=== PATIENT | female | born 1990 | race Caucasian/White ===

== ENCOUNTER → 2020-08-25 16:04 | Outpatient (BNVA) | payer OTHER, SELFPAY | PROVIDERS: Visit Provider Obstetrics & Gynecology | DX: Z32.01 Encounter for pregnancy test, result positive (principal) | CPT/HCPCS: 81025 ==

== ENCOUNTER → 2020-09-15 14:25 | Outpatient (BNVA) | payer OTHER, SELFPAY | PROVIDERS: Visit Provider Nurse Practitioner Women's Health | DX: O36.80X0 Pregnancy with inconclusive fetal viability, not applicable or unspecified (principal); F90.0 Attention-deficit hyperactivity disorder, predominantly inattentive type; Z3A.00 Weeks of gestation of pregnancy not specified | CPT/HCPCS: 84315; 84439; 84443; 84702; 85025; 86850; 86900 ==

== ENCOUNTER → 2020-09-22 15:16 | Outpatient (BNVA) | payer OTHER, SELFPAY | PROVIDERS: Visit Provider Nurse Practitioner Women's Health | DX: O03.4 Incomplete spontaneous abortion without complication (principal); Z3A.00 Weeks of gestation of pregnancy not specified | CPT/HCPCS: 84702 ==

== ENCOUNTER → 2020-10-05 10:51 | Outpatient (BNVA) | payer OTHER, SELFPAY | PROVIDERS: PCP Family Medicine; Visit Provider Obstetrics & Gynecology | DX: O03.9 Complete or unspecified spontaneous abortion without complication (principal) | CPT/HCPCS: 84702 ==

== ENCOUNTER → 2020-12-08 17:10 | Outpatient (BNVA) | payer OTHER, SELFPAY | PROVIDERS: PCP Family Medicine; Visit Provider Obstetrics & Gynecology | DX: Z12.4 Encounter for screening for malignant neoplasm of cervix (principal) | CPT/HCPCS: 88175 ==

== ENCOUNTER → 2021-08-26 15:56 | Outpatient (BNVA) | payer OTHER, SELFPAY | PROVIDERS: PCP Family Medicine; Visit Provider Obstetrics & Gynecology | DX: N93.0 Postcoital and contact bleeding (principal) | CPT/HCPCS: 76830 ==

== ENCOUNTER → 2023-03-13 12:33 | Outpatient (BNVA) | payer OTHER, SELFPAY | PROVIDERS: PCP Family Medicine; Visit Provider Nurse Practitioner Family | DX: M79.642 Pain in left hand (principal) | CPT/HCPCS: 73130 ==

== ENCOUNTER → 2023-05-02 09:53 | Outpatient (BNVA) | payer OTHER, SELFPAY | PROVIDERS: PCP Family Medicine; Visit Provider Internal Medicine Cardiovascular Disease | DX: F90.9 Attention-deficit hyperactivity disorder, unspecified type (principal) | CPT/HCPCS: 93005 ==

== ENCOUNTER 2023-05-20 07:40 | Emergency (ER) | payer OTHER, SELFPAY ==
[2023-05-20 07:42] VITALS: BP 135/87; PULSE 87; RESP 18; TEMP 37; O2SAT 99; BMI 24.7
[2023-05-20 07:56] VITALS: BP 135/87; PULSE 71; RESP 16; O2SAT 96
--- NOTE | 2023-05-20 07:59 | XRR_ITS ---
PROCEDURE INFORMATION: Exam: XR Chest Exam date and time: 05/20/2023 8:17 AM Age: 33 years old Clinical indication: Pain; Chest pressure; Additional info: Cxp TECHNIQUE: Imaging protocol: Radiologic exam of the chest. Views: 1 view. Total images: 3 COMPARISON: No relevant prior studies available. FINDINGS: Lungs: Unremarkable. No consolidation. Pleural spaces: Unremarkable. No pleural effusion. No pneumothorax. Heart/Mediastinum: Unremarkable. No cardiomegaly. Bones/joints: Unremarkable. XR/XR chest 1V portable [id number] IMPRESSION: No acute findings.
--- NOTE | 2023-05-20 07:59 | ECG_ITS ---
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 Measurements Intervals [place] Rate: 85 P: 41 SC: 149 QRS: 68 QRSD: 90 T: 40 QT: 337 QTc: 402 Interpretive Statements SINUS RHYTHM POSSIBLE RIGHT VENTRICULAR CONDUCTION DELAY [RSR (QR) IN V1/V2] Compared to ECG 05/02/2023 10:01:34 No significant changes Electronically Signed On 05-20-2023 19:51:30 CDT by Kelly Palacios M.D. [id number]
[2023-05-20 08:14] LABS: Glucose Point of Care 95 mg/dL (70-110)
[2023-05-20] MEDS: aspirin 81 mg Chew Tablet 324 MG PO (08:20)
[2023-05-20] MEDS: aluminum-mag hydrox-simethicon 30 ML, sucralfate oral liq 1 GM PO (08:21)
[2023-05-20 08:32] LABS: Basophils # 0.1 10^3/uL (0.0-0.1); Basophils % 0.6 %; Eosinophils # 0.1 10^3/uL (0.0-0.8); Eosinophils % 1.2 %; Hematocrit 43.3 % (37.0-47.0); Hemoglobin 15.3 g/dL (11.5-15.3); Lymphocytes # 2.4 10^3/uL (0.8-4.8); Lymphocytes % 27.5 %; Mean Corpuscular HGB Conc 35.3 g/dL (30.0-36.0); Mean Corpuscular Hemoglobin 31.7 pg (28.0-34.0); Mean Corpuscular Volume 89.8 fl (81-99); Mean Platelet Volume 9.7 fL (7.4-10.4); Monocytes # 0.8 10^3/uL (0.2-0.9); Monocytes % 9.3 %; Neutrophils # 5.39 10^3/uL (1.8-7.7); Neutrophils % 61.1 %; Nucleated Red Blood Cells % 0 %; Platelet Count 356 10^3/cmm (130-400); Red Blood Count 4.82 10^6/uL (4.1-5.3); Red Cell Distribution Width 11.9 % (12.1-15.1); White Blood Count 8.8 10^3/uL (4.0-10.0)
[2023-05-20 08:42] LABS: Alanine Aminotransferase 23 U/L (0-33); Albumin Level 4.6 g/dL (3.5-5.2); Alkaline Phosphatase 73 U/L (35-105); Aspartate Amino Transferase 22 U/L (0-32); Blood Urea Nitrogen 11 mg/dL (6-20); Calcium 9.3 mg/dL (8.5-10.5); Carbon Dioxide 24 mmol/L (22-29); Chloride 101 mmol/L (98-107); Globulin 3.2 g/dL (1.3-4.6); Glomerular Filtration Rate 83.1 mL/min (90-130); Glucose 92 mg/dL (65-115); Osmolality Calculated 281 mOsm/kg (285-295); Sodium 136 mmol/L (136-145); Total Bilirubin 0.3 mg/dL (0.15-1.2); Total Protein 7.8 g/dL (6.6-8.7)
[2023-05-20 08:43] LABS: Troponin(5th) Baseline 6 ng/L (0-10)
[2023-05-20 08:44] LABS: HCG Qualitative Urine. Negative (Negative)
[2023-05-20 08:55] LABS: Add Urine Microscopic? YES; Bilirubin Urine Neg (Negative); Blood Urine 2+ (Negative); Glucose Urine UA Norm (Normal); Ketones Urine Negative (Negative); Leukocyte Esterase Urine Negative (Negative); Nitrate Urine Negative (Negative); Protein Urine Neg (Negative); RBC Urine 0-4 /hpf (0-2); Specific Gravity, Urine 1.015 (1.005-1.030); Squamous Epithelial Cell Urine 0-4 /hpf (0-5); Urine Appearance Clear (CLEAR); Urine Color Straw (Yellow); Urobilinogen Urine Norm (Negative); WBC Urine RARE /hpf (0-5); pH Urine 5 (5-7)
[2023-05-20 08:56] LABS: Add Urine Culture? No; Bacteria Urine 1+ /hpf
--- NOTE | 2023-05-20 09:17 | ED_ITS ---
HPI - Chest Pain General: Chief Complaint: Chest Pain Stated Complaint: chest pain, left side, racing heart Time Seen by Provider: 05/20/23 07:43 History of Present Illness: 33-year-old female presents to the emergency department with complaints of intermittent chest pain. She states she is had this intermittent chest discomfort to the left anterior aspect of her chest for the previous 3 to 4 weeks. She states she has seen her primary care provider for this chest discomfort and has recently worn a Holter monitor but does not know the results after her 2-week trial. She states that last night in the middle night she felt like she was having a left sided sharp chest pain that was a 4 out of 10 she states that she tried to move to her left side and lay down and then to her right side and lay down and then she even got out of bed went to her living room and lay down on the couch in a different position without relief. She denies shortness of breath sweatiness nausea or vomiting. She denies exertional dyspnea. She states she does feel like she has had some intermittent epigastric discomfort that she describes as heartburn. She also states that she felt like she may have been having an anxiety attack and that she also felt lightheaded at that time. Associated symptoms: Reports palpitations Review of Systems General: Reports: 10 or more systems reviewed and unremarkable except in HPI and below Card: Reports: chest pain and palpitations GI: Reports: heartburn Neuro: Reports: dizziness Psych: Reports: anxiety [facility] ED PFSH: Medical History ADHD No pertinent past medical history Denies diabetes, asthma, hypertension, seizures, DVT/PE PMD: Dr. Nanda Blancas Surgical History Hx of knee surgery (~2006) Right knee arthroscopic surgery for torn ACL and meniscus Family History Mother Diabetes Thyroid disease CAD (coronary artery disease) unknown onset Chronic kidney disease (CKD) Family/Other Heart disease Paternal uncle CAD (coronary artery disease) Sister Hypertension Thyroid disease Grandfather Heart disease paternal Diabetes Grandmother Diabetes Grandmother Diabetes Grandfather Diabetes Denies family history of Colon cancer Ovarian cancer Clotting disorder Dementia Breast cancer Suicide Anesthesia complication Bleeding disorder Lung disease Cancer Uterine cancer Stroke Social History Smoking and tobacco status: never smoked Alcohol intake: never Substance/Drug Use: never Physical Exam Const: COMMON NORMALS: no acute distress, average body habitus, patient oriented x3, no limitations, healthy appearing, alert and well nourished ORIENTATION/CONSCIOUSNESS: Yes awake, Yes oriented to person, Yes oriented to place and Yes oriented to time HENMT: COMMON NORMALS: normocephalic, atraumatic, external ears normal, Normal external nose present, Normal nasal mucous membranes and turbinates present and moist oral mucous membranes HEAD & SCALP: normal to inspection, normocephalic and atraumatic NOSE: Normal external nose present, Normal nares present and Normal nasal mucous membranes and turbinates present EXTERNAL EAR: Yes external ears normal MOUTH: moist mucous membranes abnormal Eye: COMMON NORMALS: Equal, round and reactive pupils present, EOMs intact bilaterally and conjunctivae normal GENERAL EYE: appearance normal, both eyes and all related structures VISUAL ACUITY: Yes acuity normal PERIORBITAL: periorbital findings normal EYELID: eyelids normal CONJUNCTIVA: Yes c onjunctivae normal PUPIL: Yes Equal, round and reactive pupils present and Yes Pupil accommodation reflex normal EOM: Yes EOM abnormal Neck/C-Spine: COMMON NORMALS: full ROM, no lymphadenopathy and supple GENERAL: Yes normal visual inspection and Yes trachea midline CAROTIDS: Yes normal carotid upstroke CERVICAL SPINE: Yes cervical ROM normal Lymph: LYMPHATIC: no lymphadenopathy noted Chest: COMMONS NORMALS: normal inspection of the chest and normal palpation of entire chest wall Resp: COMMON NORMALS: normal respiratory effort, No retractions, No use of accessory muscles and clear to auscultation bilaterally EFFORT & INSPECTION: Yes able to speak in complete sentences AUSCULTATION: clear to auscultation bilaterally Cardio: COMMON NORMALS: regular rate, regular rhythm, S1 normal heart sound present, S2 normal heart sound present and Peripheral pulses 2+ throughout RATE: regular rate RHYTHM: regular rhythm HEART SOUNDS: S1 normal heart sound present and S2 normal heart sound present PERIPHERAL PULSES: Peripheral pulses 2+ throughout GI: COMMON NORMALS: Normal to inspection, nondistended, normoactive bowel sounds present, Soft to palpation and non-tender PALPATION: Yes Soft to palpation : COMMON NORMALS: Yes no CVA tenderness BLADDER/KIDNEY EXAM: Yes no CVA tenderness Back/Pelvis: COMMON NORMALS: no CVA tenderness Extremity: COMMON NORMALS: normal to inspection, full ROM and capillary refill normal Neuro: COMMON NORMALS: patient oriented x3, CN's II-XII intact bilaterally, moves all extremities and no sensory deficits noted SENSORIUM/ORIENTATION: Yes alert, Yes oriented to person, Yes oriented to place and Yes oriented to time SPEECH: speech normal Psych: COMMON NORMALS: mental status grossly normal, Normal thought process present, cooperative and normal affect THOUGHT PROCESS: Normal thought process present Skin: COMMON NORMALS: no rashes or lesions noted GENERAL SKIN EXAM: no rashes or lesions noted Course Vital Signs: Vital signs: Vital Signs Temperature 98.6 F 05/20/23 07:42 Pulse Rate 71 05/20/23 07:56 Respiratory Rate 16 05/20/23 07:56 Blood Pressure 135/87 05/20/23 07:56 Pulse Oximetry 96 05/20/23 07:56 Oxygen Delivery Me thod Room Air 05/20/23 07:56 MDM - Chest Pain Medical Decision Making Physical exam completed and documented I will obtain a radiographic examination as well as provide her a GI cocktail and cardiac dose aspirin. We will obtain cardiac markers her twelve-lead EKG appears unremarkable was initially at obtained at 747 this morning. She is sinus rhythm with a ventricular rate of 85, FL interval of 149 a QRS duration of 90 QT 337 and a QTc of [address] elevation or depression noted. At present I reviewed her CBC CMP and initial cardiac enzyme and I find no significant abnormalities concerning for her presenting complaint to be cardiac in nature. Patient is remained stable with stable vital signs while here in the emergency department we will repeat her second troponin and if that is negative we will have her follow-up with her primary care provider for additional evaluation to possibly include an echocardiogram and a cardiac stress test. She did endorse improvement of her burning sensation to her throat consistent with acid reflux/heartburn after she received her GI cocktail. Medical Records I reviewed the patient's medical records. Lab Data I reviewed the patient's lab results. 05/20/23 07:30 05/20/23 07:30 Radiology Impressions Chest X-Ray 05/20/23 07:59 IMPRESSION: No acute findings. Laboratory Results WBC 8.8 10^3/uL (4.0-10.0) 05/20/23 07:30 RBC 4.82 10^6/uL (4.1-5.3) 05/20/23 07:30 Hgb 15.3 g/dL (11.5-15.3) 05/20/23 07:30 Hct 43.3 % (37.0-47.0) 05/20/23 07:30 MCV 89.8 fl (81-99) 05/20/23 07:30 MCH 31.7 pg (28.0-34.0) 05/20/23 07: MCHC 35.3 g/dL (30.0-36.0) 05/20/23 07:30 RDW 11.9 % (12.1-15.1) L 05/20/23 07:30 Plt Count 356 10^3/cmm (130-400) 05/20/23 07:30 MPV 9.7 fL (7.4-10.4) 05/20/23 07:30 Neut % (Auto) 61.1 % 05/20/23 07:30 Lymph % (Auto) 27.5 % 05/20/23 07:30 Titus % (Auto) 9.3 % 05/20/23 07:30 Eos % (Auto) 1.2 % 05/20/23 07:30 Baso % (Auto) 0.6 % 05/20/23 07:30 Neut # (Auto) 5.39 10^3/uL (1.8-7.7) 05/20/23 07:30 Lymph # (Auto) 2.4 10^3/uL (0.8-4.8) 05/20/23 07:30 Titus # (Auto) 0.8 10^3/uL (0.2-0.9) 05/20/23 07:30 Eos # (Auto) 0.1 10^3/uL (0.0-0.8) 05/20/23 07:30 Baso # (Auto) 0.1 10^3/uL (0.0-0.1) 05/20/23 07:30 Nucleated RBC % (auto) 0 % 05/20/23 07:30 Nucleated RBCs # 0.0 /100WBC 05/20/23 07:30 Sodium 136 mmol/L (136-145) 05/20/23 07:30 Potassium 4.0 mmol/L (3.5-5.1) 05/20/23 07:30 Chloride 101 mmol/L (98-107) 05/20/23 07:30 Carbon Dioxide 24 mmol/L (22-29) 05/20/23 07:30 Anion Gap 15.0 (5-19) 05/20/23 07:30 BUN 11 mg/dL (6-20) 05/20/23 07:30 Creatinine 0.8 mg/dL (0.5-0.9) 05/20/23 07:30 GFR Calculation 83.1 mL/min (90-130) L 05/20/23 07:30 Glucose 92 mg/dL (65-115) 05/20/23 07:30 POC Glucose 95 mg/dL (70-110) 05/20/23 08:11 Calculated Osmolality 281 mOsm/kg (285-295) L 05/20/23 07:30 Calcium 9.3 mg/dL (8.5-10.5) 05/20/23 07:30 Total Bilirubin 0.3 mg/dL (0.15-1.2) 05/20/23 07:30 AST 22 U/L (0-32) 05/20/23 07:30 ALT 23 U/L (0-33) 05/20/23 07:30 Alkaline Phosphatase 73 U/L (35-105) 05/20/23 07:30 Troponin T Baseline 6 ng/L (0-10) 05/20/23 07:30 Troponin T 120 Minute 6.00 ng/L (0-10) 05/20/23 10:19 Total Protein 7.8 g/dL (6.6-8.7) 05/20/23 07:30 Albumin 4.6 g/dL (3.5-5.2) 05/20/23 07:30 Globulin 3.2 g/dL (1.3-4.6) 05/20/23 07:30 HCG, Qual Negative (Negative) 05/20/23 08:34 Urine Color Straw (Yellow) 05/20/23 08:34 Urine Appearance Clear (CLEAR) 05/20/23 08:34 Urine pH 5 (5-7) 05/20/23 08:34 Ur Specific [place] 1.015 (1.005-1.030) 05/20/23 08:34 Urine Protein Neg (Negative) 05/20/23 08:34 Urine Glucose (UA) Norm (Normal) 05/20/23 08:34 Urine Ketones Negative (Negative) 05/20/23 08:34 Urine Blood 2+ (Negative) H 05/20/23 08:34 Urine Nitrate Negative (Negative) 05/20/23 08:34 Urine Bilirubin Neg (Negative) 05/20/23 08:34 Urine Urobilinogen Norm mg/dL (Negative) 05/20/23 08:34 Ur Leukocyte Esterase Negative (Negative) 05/20/23 08:34 Urine RBC 0-4 /hpf (0-2) H 05/20/23 08:34 Urine WBC Rare /hpf (0-5) 05/20/23 08:34 Ur Squamous Epith Cells 0-4 /hpf (0-5) H 05/20/23 08:34 Amorphous Sediment Not Reportable 05/20/23 08:34 Urine Bacteria 1+ /hpf (NONE) H 05/20/23 08:34 EKG Data EKG 1: I personally reviewed and interpreted this EKG as follows: Interpretation: Twelve-lead EKG was obtained today at 747 she has normal sinus rhythm with a ventricular rate of 85 FL interval 149 QRS duration 90 QT 337 and QTc 379. Ther e is no ST elevation or depression noted at present-no ischemic changes at present. EKG 2: I personally reviewed and interpreted this EKG as follows: Interpretation: Pat Name: ? ? Natacha Catalan ? Department: ? Patient ID: ? [id number] ? Room: ? Gender: ? ? ? Female ? 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 Requested By: Aba Ramos Order Number: [id number]? Reading MD: ? Measurements Intervals? [place]? Rate: ? 54 ? P:? 32 FL: ? 167? QRS:? 75 QRSD: ? 92 ? T:? 47 QT: ? 362? QTc:? 345? Interpretive Statements SINUS BRADYCARDIA WITH SINUS ARRHYTHMIA POSSIBLE RIGHT VENTRICULAR CONDUCTION DELAY? [RSR (QR) IN V1/V2] Discharge Plan Discharge Patient Disposition: Home Clinical Impression: Atypical chest pain, Chest pain due to GERD Condition: Stable Prescriptions: No Action ibuprofen 200 mg Tablet 400 mg PO Q6H PRN (Reason: Pain) Discharge Orders: Discharge ED (Routine); Ordered 05/20/23 Ordered By: Aba Ramos Referrals: Nanda Blancas MD [Primary Care Provider] - Patient Instructions: Opioid Safety, Pain Management Coding Level of Care Code ED Balance Truer for Kseniag Chioma
--- NOTE | 2023-05-20 09:59 | ECG_ITS ---
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 Measurements Intervals [place] Rate: 54 P: 32 [place]: 167 QRS: 75 QRSD: 92 T: 47 QT: 362 QTc: 345 Interpretive Statements SINUS BRADYCARDIA WITH SINUS ARRHYTHMIA POSSIBLE RIGHT VENTRICULAR CONDUCTION DELAY [RSR (QR) IN V1/V2] Compared to ECG 05/20/2023 07:47:41 Sinus rhythm no longer present Electronically Signed On 05-20-2023 20:04:15 CDT by Kelly Palacios M.D. [id number]
[2023-05-20 11:43] LABS: Troponin 5 2HR Delta 0 ABS# (0-10)
== END 2023-05-20 11:41 | disposition home or self-care (01) ==
PROVIDERS: Emergency Provider Internal Medicine; PCP Family Medicine
DX: R07.89 Other chest pain (principal); K21.9 Gastro-esophageal reflux disease without esophagitis
CPT/HCPCS: 36416; 71045; 80053; 81001; 81025; 82962; 84484; 85025; 93005; 99285

== ENCOUNTER 2023-07-26 07:48 | Outpatient (CLI) | payer OTHER, SELFPAY ==
--- NOTE | 2023-07-26 07:59 | USCV_ITS ---
Natacha Catalan Age: 33 Gender: F : 1990 Exam Date: 07/26/2023 08:09 Ordering Phys: Nanda Blancas MD Technologist: Kaylynn Ge [place] [facility] [place]: SVT dizziness BP: 120 / 70 HR: 54 Rhythm: Sinus Technical Quality: Adequate MEASUREMENTS (Male / Female) Normal Values 2D ECHO LV Diastolic Diameter PLAX 4.3 cm 4.2 - 5.9 / 3.9 - 5.3 cm LV Systolic Diameter PLAX 2.6 cm LV Chamber Size 3.6 cm IVS Diastolic Thickness 0.7 cm 0.6 - 1.0 / 0.6 - 0.9 cm IVS Systolic Thickness 1.3 cm LVPW Diastolic Thickness 1.1 cm 0.6 - 1.0 / 0.6 - 0.9 cm LVPW Systolic Thickness 1.2 cm RV Chamber Size 2.5 cm LVOT Diameter 2.0 cm LV Ejection Fraction 2D Teich 70.1 % LV Ejection Fraction MOD 2C 66.2 % LV Ejection Fraction 2C AL 68.4 % LA Diameter 3.0 cm LA Width 2.5 cm LA Height 3.0 cm RA Width 3.0 cm RA Height 2.9 cm Aorta at Sinotubular Diameter 2.3 cm IVC Diameter 1.6 cm M-MODE Aortic Annulus Diameter 2.9 cm LA Ao Ratio MM 1.3 MV E Point Septal Separation 0.2 cm DOPPLER AV Peak Velocity 118.0 cm/s LVOT Peak Velocity 102.0 cm/s AV Area Cont Eq vti 2.5 cm squared AV Area Cont Eq pk 2.8 cm squared MV Area PHT 3.5 cm squared Mitral E to A Ratio 1.5 MV E' Velocity 49.0 cm/s Mitral E to MV E' Ratio 7.5 Mitral E to LV E' Lateral Ratio 6.4 Mitral E to LV E' Septal Ratio 9.0 TR Peak Velocity 174.2 cm/s TR Peak Gradient 12.1 mmHg TR Mean Velocity 126.8 cm/s TR Mean Gradient 7.2 mmHg TR Velocity Time Integral 47.2 cm TV Peak E Velocity 80.0 cm/s Right Atrial Pressure 3.0 mmHg Pulmonary Artery Systolic Pressu 15.1 mmHg RV Acceleration Time 0.2 s RV Ejection Time 0.4 s RV AcT/ET 0.5 FINDINGS Left Ventricle Normal left ventricular size and systolic function, EF 65 %. No regional wall motion abnormalities. Right Ventricle The right ventricle is normal in size and function. Right Atrium The right atrium is normal in size. Left Atrium The left atrium is normal in size. Mitral Valve No gross abnormalities noted Aortic Valve No gross abnormalities noted Tricuspid Valve Trace tricuspid valve regurgitation. Pulmonic Valve Trace pulmonary valve regurgitation. Pericardium Normal pericardium without effusion. Aorta Normal ascending aorta dimension. IVC Normal inferior vena cava. CONCLUSIONS Normal left ventricular size and systolic function, EF 65 %. No regional wall motion abnormalities. Normal cardiac chamber sizes Trace of tricuspid regurgitation. There is no pericardial effusion. There are no intracardiac masses. No similar previous studies are available for comparison Dr Kelly Palacios MD FAC (Electronically Signed) Final Date: 27 July 2023 09:54 S
== END 2023-07-26 07:49 | disposition home or self-care (01) ==
LOC: RAD 07:50
PROVIDERS: PCP Family Medicine; Visit Provider Family Medicine
DX: R42 Dizziness and giddiness (principal); I47.10 Supraventricular tachycardia, unspecified
CPT/HCPCS: 93306

== ENCOUNTER → 2024-01-28 16:12 | Outpatient (BNVA) | payer OTHER, SELFPAY | PROVIDERS: PCP Family Medicine; Visit Provider Nurse Practitioner Women's Health | DX: N96 Recurrent pregnancy loss (principal) | CPT/HCPCS: 84702 ==

== ENCOUNTER → 2024-05-20 15:27 | Outpatient (BNVA) | payer OTHER, SELFPAY | PROVIDERS: PCP Family Medicine; Visit Provider Nurse Practitioner Women's Health | DX: N94.6 Dysmenorrhea, unspecified (principal); D25.9 Leiomyoma of uterus, unspecified | CPT/HCPCS: 76830 ==

== ENCOUNTER 2024-08-20 12:43 | Outpatient (CLI) | payer OTHER, SELFPAY ==
--- NOTE | 2024-08-20 13:00 | FL_ITS ---
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 FLUOROSCOPY TIME: 1min [id number] # OF SPOT FILMS: 3 FINDINGS: Uterine cavity was cannulated with a small balloon catheter. The injection of contrast filled a thalia l-appearing endometrial cavity. Normal-appearing fallopian tubes were demonstrated bilaterally. There is fairly prompt free peritoneal spillage from both fallopian tubes. FL/FL hysterosalpingography [id number] IMPRESSION: Bilaterally patent fallopian tubes as above.
[2024-08-20] MEDS: iohexol 240 mg/mL 50 mL Btl INTRA-ARTI (16:40)
== END 2024-08-20 12:44 | disposition home or self-care (01) ==
PROVIDERS: PCP Family Medicine; Visit Provider Obstetrics & Gynecology
DX: N97.9 Female infertility, unspecified (principal)
CPT/HCPCS: 74740

== ENCOUNTER → 2025-03-03 12:13 | Outpatient (BNVA) | payer OTHER, SELFPAY | PROVIDERS: PCP Family Medicine; Visit Provider Nurse Practitioner Women's Health | DX: N92.6 Irregular menstruation, unspecified (principal); Z31.69 Encounter for other general counseling and advice on procreation; N96 Recurrent pregnancy loss; Z01.419 Encounter for gynecological examination (general) (routine) without abnormal findings; Z32.01 Encounter for pregnancy test, result positive | CPT/HCPCS: 80053; 80061; 82306; 82670; 83001; 83002; 83036; 84402; 84403; 84443; 85025 ==

== ENCOUNTER → 2025-03-26 14:49 | Outpatient (BNVA) | payer OTHER, SELFPAY | PROVIDERS: PCP Family Medicine; Visit Provider Nurse Practitioner Women's Health | DX: Z31.69 Encounter for other general counseling and advice on procreation (principal) | CPT/HCPCS: 84144 ==